=== PATIENT | female | born 1995 | race American Indian/Alaskan Native ===

== ENCOUNTER 2017-08-03 19:58 | Emergency (ER) | payer SELFPAY ==
[2017-08-03] MEDS ORDERED: TYLENOL PO ONE (20:39)
[2017-08-03] MEDS ORDERED: NORCO 7.5/325 ONE (23:41)
[2017-08-03] MEDS ORDERED: NORCO 7.5/325 PO ONE (23:42)
[2017-08-03] MEDS ORDERED: XYLOCAINE 2% INFILTRATI ONE ×2 (23:50→23:54)
[2017-08-03] MEDS ORDERED: LET TOPICAL TP ONE (23:52)
[2017-08-03 23:54] LABS: Bacteria,Urine 4+ /HPF (Negative); Bilirubin,Urine NEG (Negative); Blood,Urine NEG (Negative); Color,Urine Yellow (Yellow); Mucus,Urine FEW /HPF; Protein,Urine <15 mg/dL mg/dL (Negative); Urobilinogen,Urine < 2.0 mg/dL (<2.0); WBC,Urine < 1.0 /HPF (0.0-6.0)
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
[2017-08-04 00:06] LABS: HCG Qualitative,Urine Negative (Negative)
[2017-08-04] MEDS ORDERED: BOOSTRIX IM ONE (00:08)
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
[2017-08-04 05:21] VITALS: BP 134/75
== END 2017-08-04 02:08 | disposition home or self-care (01) ==
LOC: ED 19:58
DX: S02.2XXA Fracture of nasal bones, initial encounter for closed fracture (principal); F17.200 Nicotine dependence, unspecified, uncomplicated; F12.10 Cannabis abuse, uncomplicated; Y04.2XXA Assault by strike against or bumped into by another person, initial encounter; Y93.89 Activity, other specified; Y99.8 Other external cause status; Y92.89 Other specified places as the place of occurrence of the external cause
CPT/HCPCS: 70450; 70486; 81001; 81025; 90715; 96372

== ENCOUNTER 2017-08-11 05:55 | Emergency (ER) | payer SELFPAY ==
[2017-08-11 06:06] VITALS: BP 98/70
--- NOTE | 2017-08-11 06:17 | Emergency Department Report ---
Suture/Staple Removal - [facility] Chief Complaint: Laceration/Recheck/Suture Stated Complaint: WOUND CHECK Time Seen by Provider: 08/11/17 06:16 When Sutures or Samantha Placed: 5-7 Days Ago Wound Location: nose bridge ED Review of Systems ROS: Stated complaint: WOUND CHECK Other details as noted in HPI Constitutional: denies: chills, fever Eyes: denies: eye pain, eye discharge, vision change ENT: denies: ear pain, throat pain Respiratory: denies: cough, shortness of breath, wheezing Cardiovascular: denies: chest pain, palpitations Endocrine: no symptoms reported Gastrointestinal: denies: abdominal pain, nausea, diarrhea Genitourinary: denies: urgency, dysuria, discharge Musculoskeletal: denies: back pain, joint swelling, arthralgia Skin: denies: rash, lesions Neurological: denies: headache, weakness, paresthesias Psychiatric: denies: anxiety, depression Hematological/Lymphatic: denies: easy bleeding, easy bruising ED Past Medical Hx - Past Medical History Previous Medical History?: Yes Hx Asthma: Yes - Surgical History Past Surgical History?: No - Social History Smoking Status: Former Smoker Substance Use Type: Alcohol - Medications Home Medications: Home Medications Medication Instructions Recorded Confirmed Last Taken Type Ibuprofen [Motrin] 600 mg PO Q8H PRN #30 tablet 08/04/17 Unknown Rx Sulfamethoxazole/Trimethoprim 1 each PO BID #14 tablet 08/04/17 Unknown Rx [Bactrim DS TAB] traMADol [Ultram] 50 mg PO Q6HR PRN #12 tablet 08/04/17 Unknown Rx Suture Removal Exam - Exam General: Vital signs noted. No distress. Alert and acting appropriately. Wound: No Pathologic Erythema, No Tenderness, No Drainage, No Pus, No Wound Dehiscence Other Systems: All other systems reviewed and are unremarkable. ED Course Vital Signs 08/11/17 06:00 Temperature 97.7 F Pulse Rate 77 Respiratory 18 Rate Blood Pressure 98/70 O2 Sat by Pulse 98 Oximetry - Reevaluation(s) Reevaluation #1: 08/11/17 06:17 Patient is speaking in full sentences with no signs of distress noted. ED Recheck MDM - Medical Decision Making Total of 10 stitches has been removed. Healing well. No signs of dehisence. No swelling, bleeding, cellulitis, pus or drainage. Patient was instructed to Follow-up with a primary care doctor in 3-5 days or if symptoms worsen and continue return to emergency room as soon as possible. At time of discharge, the patient does not seem toxic or ill in appearance. No acute signs of distress noted. Patient agrees to discharge treatment plan of care. No further questions noted by the patient. Critical care attestation.: If time is entered above; I have spent that time in minutes in the direct care of this critically ill patient, excluding procedure time. ED Disposition Clinical Impression: Visit for suture removal Disposition: DC-01 TO HOME OR SELFCARE Is pt being admited?: No Does the pt Need Aspirin: No Condition: Stable Additional Instructions: Follow-up with a primary care doctor in 3-5 days or if symptoms worsen and continue return to emergency room as soon as possible. Referrals: PRIMARY CAREMD [Referring] - 3-5 Days BEATA SOLO MD [Staff Physician] - 3-5 Days [facility] [Outside] - 3-5 Days
== END 2017-08-11 06:20 | disposition home or self-care (01) ==
LOC: ED 05:55
DX: Z48.02 Encounter for removal of sutures (principal)
CPT/HCPCS: 99281

== ENCOUNTER 2018-04-01 02:38 | Emergency (ER) | payer MEDICAID ==
[2018-04-01 02:43] VITALS: BP 128/62
[2018-04-01] MEDS ORDERED: TYLENOL ONE (02:56)
[2018-04-01 03:21] LABS: Bilirubin,Urine NEG (Negative); Blood,Urine NEG (Negative); Color,Urine Yellow (Yellow); Mucus,Urine 2+ /HPF; Protein,Urine <15 mg/dL mg/dL (Negative); Urobilinogen,Urine < 2.0 mg/dL (<2.0)
[2018-04-01 03:27] LABS: Basophils % (Auto) 0.5 % (0.0-1.8); Eosinophils # (Auto) 0.1 K/mm3 (0.0-0.4); Eosinophils % (Auto) 1.8 % (0.0-4.3); Hematocrit 34.7 % (30.3-42.9); Hemoglobin 11.4 gm/dl (10.1-14.3); Lymphocytes # (Auto) 1.3 K/mm3 (1.2-5.4); Mean Corpuscular HGB Conc 33 % (30-34); Mean Corpuscular Volume 83 fl (79-97); Monocytes # (Auto) 0.7 K/mm3 (0.0-0.8); Monocytes % (Auto) 10.9 % (0.0-7.3); Platelet Count 266 K/mm3 (140-440); Red Blood Count 4.18 M/mm3 (3.65-5.03); Red Cell Distribution Width 13.8 % (13.2-15.2)
[2018-04-01] MEDS ORDERED: TYLENOL PO ONE (04:13)
[2018-04-01] MEDS ORDERED: PROVENTIL IH ONE (04:13)
[2018-04-01] MEDS ORDERED: BENADRYL PO ONE (04:15)
[2018-04-01] MEDS ORDERED: DELTASONE PO ONE (04:16)
--- NOTE | 2018-04-01 04:20 | Emergency Department Report ---
ED General Adult HPI - General Chief complaint: Abdominal Pain Stated complaint: 18WKS FLU SYMPTOMS Time Seen by Provider: 04/01/18 04:11 Source: patient Mode of arrival: Ambulatory Limitations: No Limitations - History of Present Illness Initial comments: Patient is 22-year-old -[place] Citizen female who is 18 weeks A0 patient presents for URI symptoms has history of asthma states nocturnal wheezing with nasal and sinus congestion cough productive clear patient denies fever secondary complaint is urinary frequency or dysuria no hematuria no vaginal bleeding no back pain wrapping patient saw CERTIFIED MEDICAL AIDE on A that ultrasound had initial workup is negative for STD states she believes she has UTI again no fevers no chills no nausea vomiting patient tolerated by mouth hydration without difficulty. There is no chest pain or dizziness no lightheadedness denies shortness of breath Onset/Timin -: days(s) Location: head Radiation: non-radiation Severity scale (0 -10): 3 Consistency: intermittent Improves with: rest Worsens with: other (environmental exposure ) Associated Symptoms: cough Treatments Prior to Arrival: none - Related Data Previous Rx's Medication Instructions Recorded Last Taken Type Ibuprofen [Motrin] 600 mg PO Q8H PRN #30 tablet 08/04/17 Unknown Rx Sulfamethoxazole/Trimethoprim 1 each PO BID #14 tablet 08/04/17 Unknown Rx [Bactrim DS TAB] traMADol [Ultram] 50 mg PO Q6HR PRN #12 tablet 08/04/17 Unknown Rx ALBUTEROL Inhaler(NF) [VENTOLIN 2 puff IH Q4H PRN #1 inha 04/01/18 Unknown Rx Inhaler(NF)] Acetaminophen [Tylenol] 650 mg PO QID PRN #30 capsule 04/01/18 Unknown Rx Azithromycin [Zithromax Z-OLENA] 250 mg PO DAILY #6 tab 04/01/18 Unknown Rx guaiFENesin [Guaifenesin] 400 mg PO TID PRN #30 tablet 04/01/18 Unknown Rx predniSONE [Deltasone] 40 mg PO QDAY 5 Days #10 tab 04/01/18 Unknown Rx Allergies Allergy/AdvReac Type Severity Reaction Status Date / Time No Known Allergies Allergy Unverified 08/03/17 20:14 ED Review of Systems ROS: Stated complaint: 18WKS FLU SYMPTOMS Other details as noted in HPI Constitutional: denies: chills, fever Eyes: denies: eye pain, eye discharge, vision change ENT: ear pain, congestion Respiratory: cough, wheezing. denies: shortness of breath Cardiovascular: denies: chest pain, palpitations Endocrine: no symptoms reported Gastrointestinal: denies: abdominal pain, nausea, diarrhea Genitourinary: urgency, frequency. denies: hematuria, discharge, abnormal menses, dyspareunia Musculoskeletal: denies: back pain, joint swelling, arthralgia Skin: denies: rash, lesions Neurological: denies: headache, weakness, paresthesias Psychiatric: denies: anxiety, depression Hematological/Lymphatic: denies: easy bleeding, easy bruising ED Past Medical Hx - Past Medical History Hx Asthma: Yes - Surgical History Additional Surgical History: Tonsillectomy - Social History Smoking Status: Never Smoker Substance Use Type: None - Medications Home Medications: Home Medications Medication Instructions Recorded Confirmed Last Taken Type Ibuprofen [Motrin] 600 mg PO Q8H PRN #30 tablet 08/04/17 Unknown Rx Sulfamethoxazole/Trimethoprim 1 each PO BID #14 tablet 08/04/17 Unknown Rx [Bactrim DS TAB] traMADol [Ultram] 50 mg PO Q6HR PRN #12 tablet 08/04/17 Unknown Rx ALBUTEROL Inhaler(NF) [VENTOLIN 2 puff IH Q4H PRN #1 inha 04/01/18 Unknown Rx Inhaler(NF)] Acetaminophen [Tylenol] 650 mg PO QID PRN #30 capsule 04/01/18 Unknown Rx Azithromycin [Zithromax Z-OLENA] 250 mg PO DAILY #6 tab 04/01/18 Unknown Rx guaiFENesin [Guaifenesin] 400 mg PO TID PRN #30 tablet 04/01/18 Unknown Rx predniSONE [Deltasone] 40 mg PO QDAY 5 Days #10 tab 04/01/18 Unknown Rx ED Physical Exam - General Limitations: No Limitations General appearance: alert, in no apparent distress - Head Head exam: Present: atraumatic, normocephalic - Eye Eye exam: Present: normal appearance, PERRL, EOMI Pupils: Present: normal accommodation - ENT ENT exam: Present: normal exam, normal orophraynx, mucous membranes moist, TM's normal bilaterally, normal external ear exam - Neck Neck exam: Present: normal inspection, full ROM. Absent: lymphadenopathy, thyromegaly - Respiratory Respiratory exam: Present: normal lung sounds bilaterally. Absent: respiratory distress, wheezes, stridor, chest wall tenderness - Cardiovascular Cardiovascular Exam: Present: regular rate, normal rhythm. Absent: systolic murmur, diastolic murmur, rubs, gallop - GI/Abdominal GI/Abdominal exam: Present: soft, normal bowel sounds. Absent: distended, tenderness, bruit, hernia - Rectal Rectal exam: Present: deferred - External exam: Present: other (exam deferred per patient ) - Extremities Exam Extremities exam: Present: normal inspection, normal capillary refill - Back Exam Back exam: Present: normal inspection, full ROM. Absent: tenderness, CVA tenderness (R), CVA tenderness (L), muscle spasm, paraspinal tenderness, vertebral tenderness, rash noted - Neurological Exam Neurological exam: Present: alert, oriented X3, CN II-XII intact, normal gait, reflexes normal - Psychiatric Psychiatric exam: Present: normal affect, normal mood - Skin Skin exam: Present: warm, dry, intact, normal color. Absent: rash ED Course Vital Signs 04/01/18 02:42 Temperature 97.9 F Pulse Rate 109 H Respiratory 18 Rate Blood Pressure 128/62 O2 Sat by Pulse 97 Oximetry ED Medical Decision Making - Lab Data Result diagrams: 04/01/18 03:13 Labs 04/01/18 04/01/18 04/01/18 03:03 03:13 03:13 WBC 6.7 RBC 4.18 Hgb 11.4 Hct 34.7 MCV 83 MCH 27 L MCHC 33 RDW 13.8 Plt Count 266 Lymph % (Auto) 19.0 [place] % (Auto) 10.9 H Eos % (Auto) 1.8 Baso % (Auto) 0.5 Lymph # 1.3 [place] # 0.7 Eos # 0.1 Baso # 0.0 Seg Neutrophils % 67.8 Seg Neutrophils # 4.6 HCG, Quant 10398 H Urine Color Yellow Urine Turbidity Slightly-cloudy Urine pH 5.0 Ur Specific [place] 1.028 Urine Protein <15 mg/dl Urine Glucose (UA) Neg Urine Ketones 20 Urine Blood Neg Urine Nitrite Neg Urine Bilirubin Neg Urine Urobilinogen < 2.0 Ur Leukocyte Esterase Sm Urine WBC (Auto) 12.0 H Urine RBC (Auto) 1.0 U Epithel Cells (Auto) 10.0 Urine Mucus 2+ - Radiology Data Radiology results: report reviewed, image reviewed Single IUP 18weeks and 4 days, FHR: 149 bpm, - Medical Decision Making This is Bronchitis , Mild UTI, plan: rocephin IM in ed , dx to home with azithromycin , albuterol, prednisone, guafenisen , benadryl, follow up with OBGYN and PCP IN 2-3 days return to ed if symptoms worsen. pr verbalized agreement and understanding of same. Critical care attestation.: If time is entered above; I have spent that time in minutes in the direct care of this critically ill patient, excluding procedure time. ED Disposition Clinical Impression: Bronchitis UTI (urinary tract infection) Qualifiers: Urinary tract infection type: acute cystitis Hematuria presence: without hematuria Qualified Code(s): N30.00 - Acute cystitis without hematuria Disposition: TO HOME OR SELFCARE Is pt being admited?: No Does the pt Need Aspirin: No Condition: Stable Instructions: Chronic Bronchitis (ED), Urinary Tract Infection in Women (ED) Prescriptions: Acetaminophen [Tylenol] 650 mg PO QID PRN #30 capsule PRN Reason: pain fever ALBUTEROL Inhaler(NF) [VENTOLIN Inhaler(NF)] 2 puff IH Q4H PRN #1 inha PRN Reason: shortness or breath wheezing Azithromycin [Zithromax Z-OLENA] 250 mg PO DAILY #6 tab guaiFENesin [Guaifenesin] 400 mg PO TID PRN #30 tablet PRN Reason: Cough predniSONE [Deltasone] 40 mg PO QDAY 5 Days #10 tab Referrals: PRIMARY CARE,MD [Primary Care Provider] - 3-5 Days Forms: Work/School Release Form(ED) Time of Disposition: 05:22
[2018-04-01] MEDS ORDERED: ROCEPHIN IM ONE (05:15)
[2018-04-01] MEDS ORDERED: XYLOCAINE 1% MPF 5 mL INFILTRATI ONE (05:15)
--- NOTE | 2018-04-01 06:16 | Ultrasound Report ---
FINAL REPORT EXAM: US OB >= 14 WEEKS FETUS HISTORY: abdominal pain COMPARISONS: None. FINDINGS: Limited transabdominal 2nd trimester ultrasound utilizing grayscale, color Doppler and M-mode techniq ue Single living intrauterine with recorded cardiac activity of 149 beats per minute. Amniotic fluid volume is subjectively normal. The cervix appears closed and measures approximately 3.8 cm in length. Anterior placenta shows homogeneous echotexture. Breech presentation. No significant free flu id in the pelvis. Biparietal diameter is 4.2 cm Head circumference is 15.3 cm Abdominal circumference is 12.8 cm Femoral length is 3 cm Composite of biometric measurements results in estimated gestational age of 18 weeks 4 days and delivery date of 08/29/2018 IMPRESSION: Single living intrauterine without acute complication identified. Follow-up is recommended. Estimated gestational age is 18 weeks 4 days corresponding to delivery date of 08/29/2018.
== END 2018-04-01 05:51 | disposition home or self-care (01) ==
LOC: ED 02:38
DX: O26.892 Other specified pregnancy related conditions, second trimester (principal); O23.42 Unspecified infection of urinary tract in pregnancy, second trimester; O99.512 Diseases of the respiratory system complicating pregnancy, second trimester; J40 Bronchitis, not specified as acute or chronic; J45.909 Unspecified asthma, uncomplicated; N30.00 Acute cystitis without hematuria; Z3A.18 18 weeks gestation of pregnancy
CPT/HCPCS: 36415; 76805; 81001; 84702; 85025; 94640; 96372; 99284; J0696; J7512